=== PATIENT | female | born 1935 | race Caucasian/White ===

== ENCOUNTER 2016-08-03 10:12 | Outpatient (CLI) | payer OTHER, MEDICARE ==
[~2016-08-03 10:12] MED LIST: LISINOPRIL10 MG PO; OMEPRAZOLE20 M1 PO; TRAMADOL HCL50 MG PO
--- NOTE | 2016-08-03 11:14 | DIAGNOSTIC IMAGING REPORT ---
PROCEDURE: CT HEAD WITHOUT CONTRAST INDICATION: ACUTE NON INTRACTABLE HEADACHES TECHNIQUE: Noncontrast axial images with sagittal and coronal reformations. COMPARISON: None. 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 Normal ventricular system with minor white matter chronic ischemic changes. There is no acute CVA, hemorrhage, mass or midline shift. Visualized mastoids and sinuses are clear. IMPRESSION: 1. No acute intracranial abnormality 2. 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
== END 2016-08-03 23:00 ==
LOC: CT SRH 10:12
DX: R51 Headache (principal); R90.82 White matter disease, unspecified